=== PATIENT | male | born 1960 | race Caucasian/White ===

== ENCOUNTER → 2020-12-06 | Outpatient (CLI) | payer BC | END | disposition home or self-care (01) | LOC: LABWHC1 10:43 | PROVIDERS: ATTEND Otolaryngology | DX: Z01.818 Encounter for other preprocedural examination (principal); Z20.822 Contact with and (suspected) exposure to COVID-19 | CPT/HCPCS: U0003; C9803; U0005 ==

== ENCOUNTER 2023-12-07 07:48 | Day surgery (SDC) | payer BC ==
[2023-12-07] MEDS: LACTATED RINGERS 1,000 ML IV SCH (08:20)
[2023-12-07 08:27] LABS: Glucose,Whole Blood 115 mg/dL (70-110)
[2023-12-07] MEDS ORDERED: PROPOFOL 10 MG/ML 20 ML VIAL IV ONE (08:39)
[2023-12-07 08:42] VITALS: RESP 16; TEMP 97
[2023-12-07 09:08] LABS: Glucose,Whole Blood 106 mg/dL (70-110)
[2023-12-07 09:25] VITALS: BP 114/77; PULSE 65
--- NOTE | 2023-12-07 09:26 | P.PCN ---
Date of Procedure: 12/07/23 Procedure(s) Performed: BRIEF HISTORY: Patient is a 63-year-old pleasant White male scheduled for an elective colonoscopy as a part of Screening for colon cancer.His mother was diagnosed with colon cancer at age 70 PROCEDURE PERFORMED: Colonoscopy. PREOPERATIVE DIAGNOSIS: Screening for colon cancer and family history of colon cancer. IV sedation per Anesthesia. PROCEDURE: After informed consent was obtained, the patient, was brought into the endoscopy unit. IV sedation was administered by Anesthesia under continuous monitoring. Digital rectal examination was normal. Initially the Olympus CF-160 flexible video colonoscope was then inserted in the rectum, gradually advanced into the cecum without any difficulty. Careful examination was performed as the scope was gradually being withdrawn. Ileocecal valve and the appendiceal orifice were visualized and appeared normal. Prep was excellent. Mucosa of the cecum, ascending colon, transverse colon, descending colon, sigmoid colon, and rectum appeared normal. Retroflexion was performed in the rectum and no lesions were seen. Scattered sigmoid diverticulosis.The patient tolerated the procedure well. IMPRESSION: Normal-appearing colon from rectum to cecum With no evidence of colorectal neoplasia. Scattered sigmoid diverticula RECOMMENDATIONS: Findings of this examination were discussed with the patient As well as his family. He was advised to have a repeat screening colonoscopy in 5 years because of the family history of colon cancer.
== END 2023-12-07 09:29 | disposition home or self-care (01) ==
LOC: ORWHC2ENDO 07:48
PROVIDERS: ATTEND Internal Medicine Gastroenterology
DX: Z12.11 Encounter for screening for malignant neoplasm of colon (principal); K57.30 Diverticulosis of large intestine without perforation or abscess without bleeding; I10 Essential (primary) hypertension; J44.9 Chronic obstructive pulmonary disease, unspecified; E11.9 Type 2 diabetes mellitus without complications; Z80.0 Family history of malignant neoplasm of digestive organs; Z88.5 Allergy status to narcotic agent; Z79.899 Other long term (current) drug therapy; Z90.89 Acquired absence of other organs; Z98.890 Other specified postprocedural states
CPT/HCPCS: 45378; J2704